=== PATIENT | male | born 1990 | race American Indian/Alaskan Native ===

== ENCOUNTER 2020-07-30 19:34 | Emergency (ER) | payer BC ==
[2020-07-30] MEDS ORDERED: DIPHtheria,PERTUSSIS(ACELL),TETANUS VACCINE/PF 0.5 ML VIAL IM ONE (20:59)
[2020-07-30] MEDS ORDERED: LIDOCAINE (2%) 20 MG/1 ML VIAL 20 ML MDV INFILTRATI ONE (20:59)
[2020-07-30] MEDS ORDERED: HYDROcodone/ACETAMINOPHEN 10-325MG TAB PO ONE (20:59)
--- NOTE | 2020-07-30 21:37 | Emergency Department Report ---
ED Laceration HPI - HPI Chief Complaint: Wound/Laceration Stated Complaint: LEFT HAND LACERATION Time Seen by Provider: 07/30/20 20:42 Occurred When: Today Location: Upper Extremity Severity: mild Tetanus Status: Not up to Date Laceration Symptoms: Yes Pain, No Foreign Body Sensation, No Numbness, No Weakness Other History: This is a 29-year-old male nontoxic, well nourished in appearance, no acute signs of distress presents to the ED with c/o of left hand laceration that occurred this evening. Patient stated he was trying to open his window which broke and caused a laceration. Patient denies decreased sensation or range of motion. Patient stated bleeding is under control. Denies any numbness, tingling, fever, chills, nausea, vomiting, chest pain, shortness of breath, headache or stiff neck. Patient denies any allergies to significant past medical history. Patient is that he is not up-to-date with tetanus. ED Review of Systems ROS: Stated complaint: LEFT HAND LACERATION Other details as noted in HPI Constitutional: denies: chills, fever Eyes: denies: eye pain, eye discharge, vision change ENT: denies: ear pain, throat pain Respiratory: denies: cough, shortness of breath, wheezing Cardiovascular: denies: chest pain, palpitations Endocrine: no symptoms reported Gastrointestinal: denies: abdominal pain, nausea, diarrhea Genitourinary: denies: urgency, dysuria Musculoskeletal: denies: back pain, joint swelling, arthralgia Skin: denies: rash, lesions Neurological: denies: headache, weakness, paresthesias Psychiatric: denies: anxiety, depression Hematological/Lymphatic: denies: easy bleeding, easy bruising ED Past Medical Hx - Past Medical History Hx Diabetes: Yes - Surgical History Past Surgical History?: No - Social History Smoking Status: Never Smoker Substance Use Type: None - Medications Home Medications: Home Medications Medication Instructions Recorded Confirmed Last Taken Type Sulfamethoxazole/Trimethoprim 1 each PO BID #14 tablet 07/30/20 Unknown Rx [Bactrim DS TAB] Laceration Physical Exam - Exam General: Vital signs noted. No distress. Alert and acting appropriately. Wound Length (cm): 3 (Left lateral hand) Laceration Location: Upper Extremity Laceration Exam: Yes Normal Distal CMS, No Foreign Body, No Exposed Tendon, Vessel, or Nerve, No Tendon Injury ED Course Vital Signs 07/30/20 20:06 Temperature 98.0 F Pulse Rate 73 Respiratory 16 Rate Blood Pressure 156/92 O2 Sat by Pulse 97 Oximetry - Reevaluation(s) Reevaluation #1: 07/30/20 21:36 Patient is speaking in full sentences with no signs of distress noted. - Laceration /Wound Repair Left Hand Wound Location: upper extremity (Left hand) Wound Length (cm): 3 Wound's Depth, Shape: superficial Wound Explored: clean Irrigated w/ Saline (ccs): 40 Betadine Prep?: Yes Volume Anesthetic (ccs): 6 (2% lidocaine plain) Wound Repaired With: sutures Suture Size/Type: 4:0, proline Number of Sutures: 8 Layer Closure?: No Sterile Dressing Applied?: Yes Progress: Under sterile field, I used Betadine to clean the area. I then used 40 mL of normal saline to flush the area. I then used 2% lidocaine plain and injected 6 mL to the wound. I then used a 4-0 Prolene to suture the laceration. Number of stitches 8. I then applied a sterile 4 x 4 with tape. Minimal bleeding noted but is under control. Patient tolerated procedure well with no signs of distress. ED Medical Decision Making - Radiology Data [facility] [address] [place] [address] XRay Report Signed Patient: CRISTIAN PALACIOS MR#: [id number] : 1990 Acct:[id number] Age/Sex: 29 / M ADM Date: 07/30/20 Loc: ED Attending Dr: Ordering Physician: PHILL IRIZARRY NP Date of Service: 07/30/20 Procedure(s): XR hand 3+V LT Accession Number(s): [id number] cc: PHILL IRIZARRY NP Fluoro Time In Minutes: LEFT HAND, 3 VIEWS INDICATION / CLINICAL INFORMATION: Left hand laceration, evaluate for possible foreign body. COMPARISON: None available. FINDINGS: No radiopaque foreign object is seen within the hand. No acute fracture or malalignment noted. IMPRESSION: 1. No radiopaque foreign object identified. 2. No evidence for fracture or dislocation. Signer Name: Yanely Del Rosario MD Signed: 07/30/2020 9:36 PM Workstation Name: [id number] Transcribed By: Dictated By: Yanely Del Rosario MD Electronically Authenticated By: Yanely Del Rosario MD Signed Date/Time: 07/30/202135 DD/ 34 TD/TT: - Medical Decision Making Patient is stable and was examined by me. The laceration suturing has been performed and has been performed and patient tolerated well. A sterile dressing has been applied. Patient was educated on proper wound care. Patient is discharged with Bactrim. Patient stated family member will drive patient home after discharge due to possible drowsiness of [place]. Patient received a tetanus booster in the ER.. Patient was instructed to return in 10 days for suture removal. Patient was instructed to refer to Follow-up with a primary care doctor in 3-5 days or if symptoms worsen and continue return to emergency room as soon as possible. At time of discharge, the patient does not seem toxic or ill in appearance. No acute signs of distress noted. Patient agrees to discharge treatment plan of care. No further questions noted by the patient. Critical care attestation.: If time is entered above; I have spent that time in minutes in the direct care of this critically ill patient, excluding procedure time. ED Disposition Clinical Impression: Laceration of left hand Disposition: DC-01 TO HOME OR SELFCARE Is pt being admited?: No Does the pt Need Aspirin: No Condition: Stable Instructions: Sutured Wound Care Additional Instructions: Follow-up with a primary care doctor in 3-5 days or if symptoms worsen and continue return to emergency room as soon as possible. Return in 10 days for suture removal. Prescriptions: Sulfamethoxazole/Trimethoprim [Bactrim DS TAB] 1 each PO BID #14 tablet Referrals: GIANFRANCO BAE MD [Primary Care Provider] - 3-5 Days ARNOLD THORNTON MD [Staff Physician] - 3-5 Days Forms: Work/School Release Form(ED) Time of Disposition: 22:18
--- NOTE | 2020-07-30 21:41 | XRay Report ---
LEFT HAND, 3 VIEWS INDICATION / CLINICAL INFORMATION: Left hand laceration, evaluate for possible foreign body. COMPARISON: None available. FINDINGS: No radiopaque foreign object is seen within the hand. No acute fracture or malalignment noted. IMPRESSION: 1. No radiopaque foreign object identified. 2. No evidence for fracture or dislocation. Signer Name: Yanely Del Rosario MD Signed: 07/30/2020 9:36 PM Workstation Name: [id number]
[2020-07-30 22:45] VITALS: BP 156/90
== END 2020-07-30 22:45 | disposition home or self-care (01) ==
LOC: ED 19:34
DX: S61.412A Laceration without foreign body of left hand, initial encounter (principal); E11.9 Type 2 diabetes mellitus without complications; Z79.899 Other long term (current) drug therapy; W26.9XXA Contact with unspecified sharp object(s), initial encounter; Y93.89 Activity, other specified; Y92.89 Other specified places as the place of occurrence of the external cause; Y99.8 Other external cause status
CPT/HCPCS: 90471; 90715

== ENCOUNTER 2020-08-06 15:09 | Emergency (ER) | payer BC ==
[2020-08-06 15:16] VITALS: BP 140/87
--- NOTE | 2020-08-06 16:34 | Emergency Department Report ---
- General Chief Complaint: Laceration/Recheck/Suture Stated Complaint: SUTURE REMOVAL Time Seen by Provider: 08/06/20 15:46 Source: patient Mode of arrival: Ambulatory Limitations: No Limitations - History of Present Illness Initial Comments: 29-year-old [place] male diabetic status post laceration to the right hand about a week ago presents to the emergency department for possible suture removal and return work. Reports continued pain and swelling to the area however no discharge. No fever, chills, sweats. No nausea vomiting - Related Data Previous Rx's Medication Instructions Recorded Last Taken Type Sulfamethoxazole/Trimethoprim 1 each PO BID #14 tablet 07/30/20 Unknown Rx [Bactrim DS TAB] Allergies Allergy/AdvReac Type Severity Reaction Status Date / Time No Known Allergies Allergy Unverified 07/30/20 19:53 ED Review of Systems ROS: Stated complaint: SUTURE REMOVAL Other details as noted in HPI Comment: All other systems reviewed and negative ED Past Medical Hx - Past Medical History Previous Medical History?: Yes Hx Diabetes: Yes Additional medical history: left finger lac - Surgical History Past Surgical History?: No - Social History Smoking Status: Current Every Day Smoker Substance Use Type: Alcohol - Medications Home Medications: Home Medications Medication Instructions Recorded Confirmed Last Taken Type Sulfamethoxazole/Trimethoprim 1 each PO BID #14 tablet 07/30/20 Unknown Rx [Bactrim DS TAB] ED Physical Exam - General Limitations: No Limitations General appearance: alert, in no apparent distress - Head Head exam: Present: atraumatic, normocephalic - Eye Eye exam: Present: normal appearance - ENT ENT exam: Present: mucous membranes moist - Neck Neck exam: Present: normal inspection - Respiratory Respiratory exam: Present: normal lung sounds bilaterally. Absent: respiratory distress - Cardiovascular Cardiovascular Exam: Present: regular rate, normal rhythm. Absent: systolic murmur, diastolic murmur, rubs, gallop - GI/Abdominal GI/Abdominal exam: Present: soft, normal bowel sounds - Rectal Rectal exam: Present: deferred - Extremities Exam Extremities exam: Present: normal inspection, other (To premature rupture of sutures with small amount of dehiscence to the area. 5 sutures still remain intact there is mild swelling to the wound but no discharge) - Back Exam Back exam: Present: normal inspection - Neurological Exam Neurological exam: Present: alert, oriented X3 - Psychiatric Psychiatric exam: Present: normal affect, normal mood - Skin Skin exam: Present: warm, dry, intact, normal color. Absent: rash ED Course Vital Signs 08/06/20 15:14 Temperature 98.9 F Pulse Rate 81 Respiratory 16 Rate Blood Pressure 140/87 O2 Sat by Pulse 100 Oximetry ED Medical Decision Making - Medical Decision Making 29-year-old male status post hand laceration he has a history of diabetes this present time too early to remove his sutures Critical care attestation.: If time is entered above; I have spent that time in minutes in the direct care of this critically ill patient, excluding procedure time. ED Disposition Clinical Impression: Encounter for wound re-check, Laceration of left hand Disposition: DC-01 TO HOME OR SELFCARE Is pt being admited?: No Does the pt Need Aspirin: No Condition: Stable Instructions: Wound Care, Adult Additional Instructions: Please follow-up in 1 week to be evaluated for possible suture removal Referrals: PRIMARY CARE, [Primary Care Provider] - 7-10 days Forms: Work/School Release Form(ED)
== END 2020-08-06 16:27 | disposition home or self-care (01) ==
LOC: ED 15:09
DX: S61.412A Laceration without foreign body of left hand, initial encounter (principal); E11.9 Type 2 diabetes mellitus without complications; F17.200 Nicotine dependence, unspecified, uncomplicated; Z79.899 Other long term (current) drug therapy; Z48.00 Encounter for change or removal of nonsurgical wound dressing; X58.XXXA Exposure to other specified factors, initial encounter; Y93.89 Activity, other specified; Y92.89 Other specified places as the place of occurrence of the external cause; Y99.8 Other external cause status
CPT/HCPCS: 99282

== ENCOUNTER 2020-08-17 18:09 | Emergency (ER) | payer BC ==
[2020-08-17 19:45] VITALS: BP 123/64
--- NOTE | 2020-08-17 20:09 | Emergency Department Report ---
Chief Complaint: Laceration/Recheck/Suture Stated Complaint: SUTURE REMOVAL Time Seen by Provider: 08/17/20 20:03 - HPI History of Present Illness: 29-year-old male patient presents to emergency department for suture removal and requesting STD testing. Sutures were placed in his right hand 2 weeks ago. - ROS Review of Systems: GENERAL: Negative for fever. CARDIOVASCULAR: Negative for chest pain. PULMONARY: Negative for shortness of breath. GASTROINTESTINAL: Negative for abdominal pain. MUSCULOSKELETAL: Negative for back pain. NEUROLOGICAL: Negative for headache. INTEGUMENTARY: Negative for rash. - Exam Vital Signs: Vital Signs 08/17/20 19:44 Temperature 98.2 F Pulse Rate 72 Respiratory 18 Rate Blood Pressure 123/64 [Right] O2 Sat by Pulse 97 Oximetry Physical Exam: General: Awake, appropriately interactive, no acute distress. Neck: Supple. Full range of motion intact. Cardiovascular: Normal peripheral perfusion. Pulmonary: No respiratory distress. Patient is speaking normally without use of accessory muscles. Skin: Well-healing laceration noted to the ulnar aspect of the right hand with [address]. The wound does not appear dehisced or infected. Neurological: No facial asymmetry. Speech is clear. Follows commands. Patient is alert and oriented. Musculoskeletal: Moves all four extremities spontaneously with normal range of motion. Psych: Cooperative. Appropriate mood and affect. MSE screening note: Focused history and physical exam performed. Due to findings the following was ordered: ED Medical Decision Making - Medical Decision Making 3 Prolene sutures were removed in triage without complications. Patient tolerated procedure well. Patient has referred to the local health department and/or primary care provider for outpatient STD testing. BILLING/CODING: This patient encounter does not represent a certified medical emergency. ED Disposition for MSE Clinical Impression: Encounter for removal of sutures Disposition: MED SCREENING EXAM-LEFT Is pt being admited?: No Does the pt Need Aspirin: No Condition: Stable Instructions: Wound Closure Removal, Care After Additional Instructions: Apply Vaseline to the right hand daily. Apply sunscreen to the right hand when exposed to sunlight in order to reduce scarring. You must follow-up with the health department and/or primary care provider for outpatient STD testing. See referral information below. Return to the emergency department immediately for new or worsening symptoms. Referrals: [facility] [Outside] - 3-5 Days ARNOLD THORNTON MD [Staff Physician] - 3-5 Days Time of Disposition: 20:09
== END 2020-08-17 22:29 | disposition left against medical advice (07) ==
LOC: ED 18:09
DX: S61.411D Laceration without foreign body of right hand, subsequent encounter (principal); Z48.02 Encounter for removal of sutures; X58.XXXD Exposure to other specified factors, subsequent encounter